=== PATIENT | female | born 1985 | race Caucasian/White ===

== ENCOUNTER → 2018-06-15 | Outpatient (CLI) | payer MEDICAID | LOC: MHCPAIN 13:27 | DX: G89.29 Other chronic pain (principal); M54.9 Dorsalgia, unspecified | CPT/HCPCS: G0463 ==

== ENCOUNTER 2019-10-12 14:38 | Emergency (ER) | payer MEDICAID ==
[~2019-10-12] VITALS: Ht 160 cm; Wt 93.6 kg
[~2019-10-12 14:38] MED LIST: ABILIFY 10MG TA10 MG PO; ACETAMINOPHEN W1 TA6 PO; ADVIL200 MG PO; AMBIEN 10MG10 MG PO; AMITRIPTYLINE H25 M1 PO; AMITRIPTYLINE150 MG PO; AMOXICILLIN 50500 MG PO; AMOXICILLIN 8751 TAB PO; AMOXICILLIN875 MG PO; ATARAX 10MG10 MG/TAB; ATARAX 25MG25 MG/TAB PO; ATIVAN 1MG T1 MG/TAB PO; BACTRIM DS 8001 TAB PO; BACTROBAN 22GM22 GM TP; BCP TD; BENADRYL; BENADRYL25 MG PO; BENADRYL50 MG PO; BIRTH CONTROL; BIRTH CONTROL PILL; BUSPAR10 MG PO; CATAPRES0.2 MG PO; CELEXA; CELEXA10 MG PO; CEPHALEXIN250 M1 PO; CEPHALEXIN500 M1 PO; CIPRO 500MG TA500 MG PO; CLEOCIN HC150 MG/CAP PO; COPPER IUD; CYMBALTA 30MG30 MG PO; CYMBALTA 60MG60 MG PO; DHA; DOXYCYCLINE 10100 MG PO; DOXYCYCLINE100 M2 PO; EC NAPROSYN500 MG PO; EPA FISH OIL1000 MG PO; EXCEDRIN MIGRAI1 TAB PO; EXCEDRIN TENSIO1 CAP PO; FLAGYL 250250 MG/TAB; FLAGYL500 MG; FLAGYL500 MG PO; FLEXERIL 1010 MG/TAB PO; FLEXERIL10 MG PO; FLUOXETINE; FLUOXETINE20 MG PO; GEODON 20 MG20 MG; GEODON 20 MG20 MG PO; GEODON60 MG PO; GEODON80 MG PO; HALCION 0.0.125 MG/T PO; HALCION0.25 MG PO; HALDOL5 MG PO; HYDROCODONE/APAP; IBU-TAB800 MG PO; IBUPROFEN400 MG PO; IMITREX 6M6 MG/0.5 M SQ; INDERAL; INDERAL 10MG10 MG PO; INDERAL40 MG PO; INDOMETHACIN PO; LAMICTAL 100MG100 MG PO; LAMICTAL 25MG T25 MG PO; LEVOXYL0.025 MG PO; LIDODERM PATCH; LORATADINE10 MG PO; LORTAB 5/500 501 TAB; LORTAB 5/500 501 TAB PO; LORTAB 7.5/5001 TAB PO; LORTAB ELIX0.5 MG/ML PO; MAXALT10 MG PO; MELATONIN5 M1 PO; MELATONIN5 M1 SL; METRONIDAZOLE500 MG PO; MIDRIN; MIDRIN 325 MG-11 CAP PO; MIRENA52 MG IU; MIRTAZAPINE15 M1 PO; MULTIPLE VITAMI1 TAB PO; NAPROSYN500 MG PO; NAPROXEN EC500 MG PO; NEURONTIN300 MG/CAP PO; NIGHT TIME SLEE25 MG PO; NIQUIL; NO HOME MEDICATIONS; NORCO 325 MG-51 TAB; NORCO 325 MG-51 TAB PO; NORCO 325 MG-7.1 TAB PO; NORCO PO; PEN-VEE K500 MG PO; PEPCID 20MG TAB20 MG PO; PERCOCET 325 MG1 TA2 PO; PERCOCET 500 MG1 TAB PO; PHENERGAN 25 TA25 MG; PHENERGAN 25 TA25 MG PO; PHENERGAN12.5 MG/SU RC; PHENERGAN25 MG RC; PRENATABS CBF1 TAB PO; PRENATAL MULTIV1 KIT PO; PRENATAL PLUS PO; PRENATAL VITAMI1 TA5 PO; PRENATAL1 TA1 PO; PRENATAL1 TA4 PO; PROFERRIN ES12 MG PO; PROVERA 10MG10 MG PO; PROZAC 10MG10 MG PO; PROZAC 20MG20 MG PO; PROZAC20 MG PO; PROZAC40 MG PO; PYRIDIUM 100MG100 MG PO; PYRIDIUM200 M1 PO; REGLAN 10MG10 MG/TAB PO; REMERON 15M15 MG/TA1 PO; REMERON30 MG PO; RESTORIL 1515 MG/CAP PO; RESTORIL 77.5 MG/CAP PO; RESTORIL30 MG PO; ROBAXIN100 MG/ML; ROBITUSSIN DM120 ML PO; SARAFEM10 M1; SEPTRA DS 8001 TAB PO; SEROQUEL; SEROQUEL 1100 MG/TAB PO; SEROQUEL 200MG200 MG PO; SEROQUEL50 MG PO; SINUS D PO; SOME ANTIBIOTIC; SYNTHROID 0.0.025 MG PO; TOPAKAX; TOPAMAX 100MG100 M1 PO; TOPAMAX 100MG100 MG PO; TOPAMAX 25MG25 M1 PO; TOPAMAX 25MG25 MG PO; TOPAMAX50 MG PO; TOPIRAMATE; TRAZODONE100 MG PO; TRIAZADONE; TRIAZOLAM0.25 MG PO; TYLENOL #3 301 UDTAB PO; TYLENOL 500MG500 MG PO; TYLENOL EXTRA500 M1 PO; TYLENOL PM 5001 CAP PO; TYLENOL PM EXTR1 TA1 PO; TYLENOL W/COD1 UDTAB PO; ULTRAM 50MG TAB50 MG PO; VALTREX 50500 MG/TAB PO; VICODIN 5/5001 UDTAB PO; XANAX .25M0.25 MG/TA PO; XANAX 0.5MG0.5 MG PO; XANAX0.5 MG PO; ZITHROMAX 250M250 MG PO; ZITHROMAX TRI-500 MG PO; ZITHROMAX500 M2 PO; ZOVIRAX 200MG200 MG; ZOVIRAX800 MG PO; [UNRECOGNIZED DRUG - OTHER]; [UNRECOGNIZED DRUG - OTHER]; [UNRECOGNIZED DRUG - OTHER]; [UNRECOGNIZED DRUG - SUPPLY]; sleeping pill
[2019-10-12 14:43] VITALS: BP 149/65; TEMP 96.7
[2019-10-12 15:05] LABS: COLLECTION METHOD CLEAN CATCH
[2019-10-12 15:17] LABS: MUCOUS Present /lpf; PH 6 (5-8); URINE APPEARANCE Clear; URINE BACTERIA None Seen /hpf; URINE BILIRUBIN Negative (NEGATIVE); URINE BLOOD Negative (NEGATIVE); URINE COLOR Yellow; URINE GLUCOSE Negative (NEGATIVE); URINE KETONE Negative (NEGATIVE); URINE LEUKOCYTE ESTERASE Negative (NEGATIVE); URINE NITRATE Negative (NEGATIVE); URINE PROTEIN(semi-quant) Negative (NEGATIVE); URINE UROBILINOGEN Negative (NEGATIVE)
[2019-10-12 16:02] LABS: BASO # 0.1 (0.0-0.2); BASO % 0.5 % (0.0-2.0); EOS # 0.3 (0.0-0.7); EOS % 2.1 % (0-4.0); GRAN % 53.3 % (42.2-75.2); HEMATOCRIT 39.7 % (37.0-47.0); HEMOGLOBIN 12.4 g/dl (12.5-16.0); LYMPH # 4.7 (1.2-3.4); LYMPH % 35.5 % (20.0-51.0); MEAN CELL VOLUME 81 fl (80.0-100.0); MEAN CORPUSCULAR HEMOGLOBIN 25 pg (27.0-31.0); MEAN CORPUSCULAR HGB CONC 31 g/dl (33.0-37.0); MEAN PLATELET VOLUME 9.7 fl (7.4-10.4); MONO # 1.1 (0.1-0.6); MONO % 8.2 % (1.7-9.3); PLATELET COUNT 255 K/mm3 (130-400); REDCELL DISTRIBUTION WIDTH-CV 17.5 % (11.5-14.5)
[2019-10-12 16:54] LABS: BILIRUBIN,TOTAL 0.2 mg/dL (0.0-1.0); CALCIUM 9.2 mg/dL (8.4-10.2); CREATININE, serum 0.59 (0.52-1.25); POTASSIUM 3.8 mmol/L (3.4-5.0); TOTAL PROTEIN 6.9 gm/dL (6.4-8.2)
[2019-10-12 17:15] VITALS: PULSE 80
== END 2019-10-12 17:15 | disposition home or self-care (01) ==
LOC: COL.ER 14:38
PROVIDERS: Emergency Medicine; Physician Assistant
DX: O26.891 Other specified pregnancy related conditions, first trimester (principal); O99.331 Smoking (tobacco) complicating pregnancy, first trimester; O99.281 Endocrine, nutritional and metabolic diseases complicating pregnancy, first trimester; O99.351 Diseases of the nervous system complicating pregnancy, first trimester; R10.2 Pelvic and perineal pain; M79.7 Fibromyalgia; E03.9 Hypothyroidism, unspecified; G43.909 Migraine, unspecified, not intractable, without status migrainosus; F17.210 Nicotine dependence, cigarettes, uncomplicated; Z98.890 Other specified postprocedural states; Z3A.01 Less than 8 weeks gestation of pregnancy

== ENCOUNTER 2019-11-20 19:02 | Emergency (ER) | payer MEDICAID ==
[~2019-11-20] VITALS: Ht 160 cm; Wt 90.9 kg
[2019-11-20 19:11] VITALS: BP 116/70; TEMP 97.3
[2019-11-20 19:46] LABS: COLLECTION METHOD CLEAN CATCH
[2019-11-20 19:57] LABS: MUCOUS Present /lpf; PH 6 (5-8); URINE APPEARANCE Hazy; URINE BACTERIA Rare /hpf; URINE BILIRUBIN Negative (NEGATIVE); URINE BLOOD Negative (NEGATIVE); URINE COLOR Amber; URINE GLUCOSE Negative (NEGATIVE); URINE KETONE Negative (NEGATIVE); URINE LEUKOCYTE ESTERASE Negative (NEGATIVE); URINE NITRATE Negative (NEGATIVE); URINE PROTEIN(semi-quant) 1+ (NEGATIVE)
[2019-11-20 20:01] LABS: ALBUMIN 4.1 gm/dL (3.5-5.0); BILIRUBIN,TOTAL 0.3 mg/dL (0.0-1.0); CALCIUM 8.9 mg/dL (8.4-10.2); CREATININE, serum 0.52 (0.52-1.25); POTASSIUM 3.5 mmol/L (3.4-5.0); TOTAL PROTEIN 7.2 gm/dL (6.4-8.2)
[2019-11-20 20:10] LABS: BASO % 0.3 % (0.0-2.0); EOS # 0.1 (0.0-0.7); EOS % 0.6 % (0-4.0); GRAN # 6.7 (1.4-6.5); GRAN % 73.5 % (42.2-75.2); HEMOGLOBIN 12.3 g/dl (12.5-16.0); LYMPH # 1.4 (1.2-3.4); LYMPH % 15.1 % (20.0-51.0); MEAN CELL VOLUME 83 fl (80.0-100.0); MEAN CORPUSCULAR HEMOGLOBIN 26 pg (27.0-31.0); MEAN CORPUSCULAR HGB CONC 32 g/dl (33.0-37.0); MEAN PLATELET VOLUME 10.6 fl (7.4-10.4); MONO # 0.9 (0.1-0.6); MONO % 9.9 % (1.7-9.3); PLATELET COUNT 188 K/mm3 (130-400); REDCELL DISTRIBUTION WIDTH-CV 16.9 % (11.5-14.5)
[2019-11-20 21:03] VITALS: PULSE 86
== END 2019-11-20 21:03 | disposition home or self-care (01) ==
LOC: COL.ER 19:02
PROVIDERS: Nurse Practitioner
DX: O21.9 Vomiting of pregnancy, unspecified (principal); O99.511 Diseases of the respiratory system complicating pregnancy, first trimester; J45.909 Unspecified asthma, uncomplicated; O99.411 Diseases of the circulatory system complicating pregnancy, first trimester; I25.10 Atherosclerotic heart disease of native coronary artery without angina pectoris; O99.331 Smoking (tobacco) complicating pregnancy, first trimester; F17.210 Nicotine dependence, cigarettes, uncomplicated; Z86.73 Personal history of transient ischemic attack (TIA), and cerebral infarction without residual deficits; Z3A.11 11 weeks gestation of pregnancy
CPT/HCPCS: J2550; J7030

== ENCOUNTER 2020-01-01 12:53 | Emergency (ER) | payer MEDICAID ==
[~2020-01-01] VITALS: Ht 160 cm; Wt 90.5 kg
[2020-01-01 13:11] VITALS: BP 119/74; TEMP 98.6
[2020-01-01] MEDS ORDERED: ZITHROMAX Z PA250 MG PO (13:51)
[2020-01-01 14:16] VITALS: PULSE 96
== END 2020-01-01 14:16 | disposition home or self-care (01) ==
LOC: COL.ER 12:53
DX: J20.9 Acute bronchitis, unspecified (principal); F41.9 Anxiety disorder, unspecified; E03.9 Hypothyroidism, unspecified; M79.7 Fibromyalgia; F17.210 Nicotine dependence, cigarettes, uncomplicated

== ENCOUNTER 2022-04-08 12:33 | Emergency (ER) | payer MEDICAID ==
[~2022-04-08] VITALS: Ht 160 cm; Wt 95.5 kg
[~2022-04-08 12:33] MED LIST changes: +ZITHROMAX Z PA250 MG PO
[2022-04-08 12:53] VITALS: TEMP 98.4
[2022-04-08] MEDS ORDERED: AMOXICILLIN875 MG PO ×3 (13:13→13:30)
[2022-04-08 13:55] VITALS: BP 131/92; PULSE 90
== END 2022-04-08 13:57 | disposition home or self-care (01) ==
LOC: COL.ER 12:33
DX: G43.909 Migraine, unspecified, not intractable, without status migrainosus (principal); H66.91 Otitis media, unspecified, right ear; F17.210 Nicotine dependence, cigarettes, uncomplicated; Z88.8 Allergy status to other drugs, medicaments and biological substances; Z28.310 Unvaccinated for COVID-19
CPT/HCPCS: J0780